=== PATIENT | male | born 1955 | race Hispanic/Latino ===

== ENCOUNTER 2017-02-18 23:28 | Emergency (ER) | payer OTHER, SELFPAY ==
[2017-02-19] MEDS ORDERED: Sodium Chloride 0.9% 1,000 ML ONE (00:07)
[2017-02-19 00:19] LABS: #Eosinphils 0.1 thou/uL (0.0-0.7); #Lymphocytes 1.4 thou/uL (1.20-3.40); #Monocytes 0.5 thou/uL (0.11-0.59); #Neutrophils 2.3 thou/uL (1.40-6.50); %Basophils 0.7 % (0.0-1.0); %Eosinophils 1.6 % (0.0-10.0); %Monocytes 12.2 % (0.0-10.0); %Neutrophils 52.6 % (42.0-75.0); Hemoglobin 12.1 g/dL (14.0-18.0); Mean Corpuscular Hemoglobin 29.8 pg (27.0-31.0); Mean Corpuscular Volume 87.7 fl (80.0-94.0); Mean Platelet Volume 8.6 fL (7.4-10.4); Platelet Count 291 thou/uL (130-400); Red Blood Cell (RBC) Count 4.06 mill/uL (4.70-6.10); White Blood Cell (WBC) Count 4.3 thou/uL (4.8-10.8)
[2017-02-19 00:31] LABS: ALT (SGPT) 23 U/L (0-55); AST (SGOT) 27 U/L (5-34); Albumin 4.2 g/dL (3.4-4.8); Alcohol Less than 10 mg/dL (Less than 10); Alkaline Phosphatase 92 U/L (40-150); Anion Gap 17 mmol/L (10-20); BUN (Urea Nitrogen) 35 mg/dL (8.4-25.7); Bilirubin, Total 0.3 mg/dL (0.2-1.2); CK (CPK) 140 U/L (30-200); CKMB 3.4 ng/mL (0-6.6); Calc. Creatinine Clearance 0 mL/min (70-130); Calcium 9.4 mg/dL (7.8-10.44); Carbon Dioxide 22 mmol/L (23-31); Chloride 100 mmol/L (98-107); Estimated GFR-MDRD 40; Glucose 160 mg/dL (80-115); Lipase 94 U/L (8-78); Potassium 4.1 mmol/L (3.5-5.1); Protein, Total 8.2 g/dL (5.8-8.1); Sodium 135 mmol/L (136-145); Troponin I Less than 0.010 ng/mL (< 0.028)
--- NOTE | 2017-02-19 08:32 | RAD ---
SEMIUPRIGHT PORTABLE CHEST 1 VIEW: Date: 02/19/17 HISTORY: 62-year-old male with dizziness for 2 days with shortness of breath. COMPARISON: 07/09/16. FINDINGS: Extensive tortuosity of the thoracic aorta. Moderate size hiatal hernia. Heart size is within normal limits. Monitor leads overlie the chest. No evidence of pneumonia, acute edema, or other acute proc ess. IMPRESSION: Thoracic aortic tortuosity. Moderate size hiatal hernia. Stable from prior study. No acute process. POS: GRECIA
== END 2017-02-19 01:05 | disposition home or self-care (01) ==
LOC: NAV ERS 23:28
DX: E86.0 Dehydration (principal); F41.9 Anxiety disorder, unspecified; M10.9 Gout, unspecified; F17.210 Nicotine dependence, cigarettes, uncomplicated
CPT/HCPCS: 71010; 80053; 80307; 82553; 83690; 84484; 85025; 93005; 96360; J7050

== ENCOUNTER 2017-03-23 12:38 | Outpatient (CLI) | payer OTHER ==
--- NOTE | 2017-03-23 15:31 | RAD ---
LUMBAR SPINE SERIES 3 VIEWS: HISTORY: Disability evaluation. FINDINGS: The vertebral bodies are normal in height. Disk spaces are fairly well preserved. There are degene rative osteophytic changes seen. There are degenerative facet changes of the lower lumbar spine. T he pedicles appear intact. There is a minimal scoliosis convex to the left. Fairly extensive vascu lar calcifications are noted. IMPRESSION: Mild arthritic changes of the spine and mild levoscoliosis. POS: CET
--- NOTE | 2017-03-23 15:32 | RAD ---
RIGHT SHOULDER 2 VIEWS: HISTORY: Disability evaluation. FINDINGS: There are some moderate arthritic changes of the RAGINI and glenohumeral joints. The bones appear slig htly demineralized. No signs of fracture. IMPRESSION: Moderate arthritic change in the shoulder. POS: CET
== END 2017-03-23 12:39 | disposition home or self-care (01) ==
LOC: NAV RAD 12:38
PROVIDERS: ATTEND Family Medicine
DX: Z02.71 Encounter for disability determination (principal); M47.816 Spondylosis without myelopathy or radiculopathy, lumbar region
CPT/HCPCS: 72100

== ENCOUNTER 2017-05-04 09:45 | Outpatient (CLI) | payer OTHER, SELFPAY | END 2017-05-04 09:46 | disposition home or self-care (01) | LOC: NAV LAB 09:45 | PROVIDERS: ATTEND Radiology Radiation Oncology | DX: C61 Malignant neoplasm of prostate (principal) | CPT/HCPCS: 36415; 84153 ==